=== PATIENT | male | born 1930 | race Caucasian/White ===

== ENCOUNTER → 2017-07-26 | Outpatient (CLI) | payer MEDICARE, BC ==
--- NOTE | 2017-07-27 10:33 | MR ---
EXAMINATION TYPE: MR angio neck wo/w con DATE OF EXAM: 07/26/2017 COMPARISON: NONE HISTORY: Carotid stenosis multiple bilateral without cerebrovascular infarct (I 65.8) per order. Neck pain for 2 months per patient. CONTRAST: Standard multiplanar, multisequence MRI departmental protocol utilizing 7 mL intravenous Gadavist raj olinium contrast. 2-D and 3-D reconstructed images are created and reviewed. FINDINGS: There is normal three-vessel origin from aortic arch. The right common carotid artery shows normal origin from the right brachiocephalic artery seen best near coronal image 142. There is no si gnificant focal stenosis in right common carotid artery including carotid bulb. There is successful v isualization of right external carotid artery originating anteriorly without significant stenosis. Th ere is moderate segment narrowing of the right proximal internal carotid artery past carotid bulb ove r roughly 1.1 cm segment seen best coronal image 112 series 601, lumen diameter is narrowed to 2.8 mm . Lumen diameter reconstitutes to 7.3 mm superior to this. Findings correlate with axial images at th is level. Remainder of right internal carotid artery shows no significant stenosis to the level of ci rcle of [place]. Left common carotid artery shows no significant focal stenosis. There is patent external carotid denis ry without significant stenosis. There is mild focal narrowing of the left proximal internal carotid artery shortly after carotid bulb with lumen diameter narrows to 4.1 mm on coronal image 90 and recon stitutes to 5.9 mm superior to this. Findings correlate with axial images. Remainder of right interna l carotid artery shows moderate to severe concentric stenosis supraclinoid segment seen best images 1 05 and 106 series 301 without definitive focal stenosis. There is focal narrowing at origin of right vertebral artery with lumen diameter narrows to 2.8 mm se en best image 260 series 601 in lumen diameter reconstituting to 6.1 mm on image 240 superior to this . There is tortuous course to the right vertebral artery. Minimal narrowing mid aspect is present becca r coronal image 142. Right vertebral artery is patent to basilar junction. Codominant vertebrobasilar system is seen. Left vertebral artery shows mild to moderate narrowing at origin measuring up to 3.5 mm diameter image 232 and reconstitutes to 4.6 mm image 274. Remainder is patent without significant stenosis. IMPRESSION: 1. Moderate segment concentric narrowing proximal right internal carotid artery with calculated appro ximately 60% diameter occlusion. 2. Focal just over 50% stenosis at right vertebral artery origin. 3. No additional focal stenosis in common, external, or internal carotid or vertebral arteries bilate rally is clearly identified.
== END | disposition home or self-care (01) ==
LOC: RADMRIMAIN 11:40
PROVIDERS: ATTEND Internal Medicine Interventional Cardiology
DX: I65.21 Occlusion and stenosis of right carotid artery (principal)
CPT/HCPCS: 70549; A9581; 82565; 84520

== ENCOUNTER → 2017-07-26 | Outpatient (CLI) | payer MEDICARE, BC | LOC: RADCTMAIN 09:52 | PROVIDERS: ATTEND Internal Medicine Interventional Cardiology | DX: I65.23 Occlusion and stenosis of bilateral carotid arteries (principal) | CPT/HCPCS: 82565; 84520 ==

== ENCOUNTER → 2018-03-29 | Outpatient (CLI) | payer MEDICARE, BC ==
[2018-03-29 08:03] LABS: Albumin 3.7 g/dL (3.5-5.0); Calcium 9.3 mg/dL (8.4-10.2); Potassium 4.6 mmol/L (3.5-5.1); Total Bilirubin 0.6 mg/dL (0.2-1.3); Total Protein 6.6 g/dL (6.3-8.2)
== END | disposition home or self-care (01) ==
LOC: LABWHC1 07:11
PROVIDERS: ATTEND Internal Medicine Interventional Cardiology
DX: E78.2 Mixed hyperlipidemia (principal)
CPT/HCPCS: 36415; 80053; 80061